=== PATIENT | male | born 1950 | race Caucasian/White ===

== ENCOUNTER 2023-06-20 07:32 | Day surgery (SDC) | payer MEDICARE ==
[~2023-06-20] VITALS: Ht 175.3 cm; Wt 103.7 kg
[2023-06-20] MEDS ORDERED: PRAV20 (08:10)
[2023-06-20] MEDS ORDERED: SINEMET 25-1001 EAC1 (08:11)
[2023-06-20] MEDS ORDERED: TAMS.4ER (08:23)
[2023-06-20 10:02] VITALS: BP 105/72
== END 2023-06-20 10:01 | disposition home or self-care (01) ==
LOC: ORSCSDS 07:32 → ORD 08:45 → ORSCSDS 10:01
PROVIDERS: Internal Medicine Gastroenterology
PROC: 0DBH8ZX Excision of Cecum, Via Natural or Artificial Opening Endoscopic, Diagnostic (ICD-10-PCS; principal; 2023-06-20 08:45)
PROC: 0DBM8ZX Excision of Descending Colon, Via Natural or Artificial Opening Endoscopic, Diagnostic (ICD-10-PCS; principal; 2023-06-20 08:45)
DX: Z12.11 Encounter for screening for malignant neoplasm of colon (principal); Z86.010 Personal history of colon polyps; D12.0 Benign neoplasm of cecum; D12.4 Benign neoplasm of descending colon; K57.30 Diverticulosis of large intestine without perforation or abscess without bleeding; K64.8 Other hemorrhoids; E03.9 Hypothyroidism, unspecified; F31.9 Bipolar disorder, unspecified; G20 Parkinson's disease; Z79.899 Other long term (current) drug therapy
CPT/HCPCS: 88305; J2704; J7120